=== PATIENT | male | born 1970 | race Caucasian/White ===

== ENCOUNTER → 2016-07-30 | Outpatient (CLI) | payer BC ==
[~2016-07-30] MED LIST: HYDR-5688 PO; MULT-506 PO
--- NOTE | 2016-07-30 13:47 | DIAGNOSTIC IMAGING REPORT ---
MRI THE RIGHT SHOULDER NO CONTRAST CLINICAL HISTORY: Right shoulder pain COMPARISON STUDY: Conventional radiographic study dated 02/27/2016 FINDINGS: Imaging was performed in sagittal, coronal, and axial planes. There are no areas of marrow replacement to indicate occult fracture or bone bruise. The bicipital tendon appears intact. There is no dislocation. There is extensive supraspinatus tendinopathy with a partial thickness tear. There is no tendinous retraction. There is irregularity anterior inferior inferior glenoid labrum IMPRESSION: 1. Extensive supraspinatus tendinopathy with a partial thickness tear. No evidence of tendinous retraction 2. Irregularity of the anterior inferior glenoid labrum, likely representing a tear Electronically signed by: Rickey Alexander M.D. 07/30/2016 1:46 PM Dictated Date/Time: 07/30/2016 1:42 PM
== END | disposition home or self-care (01) ==
LOC: C.MRI 13:04
PROVIDERS: ATTEND Physical Medicine & Rehabilitation Sports Medicine
DX: M25.511 Pain in right shoulder (principal)

== ENCOUNTER → 2016-09-19 | Day surgery (SDC) | payer BC ==
[2016-09-04 09:16] VITALS: Ht 177.8 cm; Wt 95.5 kg
[~2016-09-19] VITALS: Ht 177.8 cm; Wt 95.5 kg
[~2016-09-19] MED LIST changes: +BUPIVACAINE 0.5 % 5 MG/1 ML MPF 30ML VIAL ONE; +CEFAZOLIN 2000 MG/60 ML D5W IV SCH; +DEXAMETHASONE SOD INJ 4 MG/ML VIAL ONE; +FENTANYL CITRATE INJ 50 MCG/1 ML 2 ML VIAL IV PRN; +FENTANYL CITRATE INJ 50 MCG/1 ML 2 ML VIAL ONE; +GLYCOPYRROLATE INJ 0.2 MG/ML VIAL ONE; +LACTATED RINGER'S 1000ML 1,000 ML IV PRN; +LACTATED RINGER'S 1000ML 1,000 ML IV SCH; +LIDOCAINE HCL 2% 2 ML VIAL (20MG/ML) ONE; +LIDOCAINE/EPINEPHRINE 1% INJ 50 ML VIAL ONE; +MIDAZOLAM HCL 1 MG/ML 2ML VIAL ONE; +MoRPHine SULFATE 2 MG/ML CARP IV PRN; +MoRPHine SULFATE 4 MG/ML 1 ML CARP\\VIAL IV PRN; +NEOSTIGMINE METHYLSULFATE 5 MG/5 ML SYR ONE; +ONDANSETRON INJ 2 MG/ML 2 ML VIAL IV PRN; +ONDANSETRON INJ 2 MG/ML 2 ML VIAL ONE; +OXYCODONE/ACETAMINOPHEN 5-325 TAB PO PRN; +PROPOFOL IV EMULSION 10 MG/ML 20 ML VIAL IV ONE; +ROCURONIUM BROMIDE 10 MG/ML 5 ML VIAL ONE; +SODIUM CHLORIDE 0.9% 1000ML 1,000 ML IV SCH
--- NOTE | 2016-09-19 10:07 | History & Physical Bridge Note ---
H&P Re-Evaluation Bridge Note: I have examined the patient, reviewed the History & Physical and in the interval since the performance of the History & Physical I have noted the following changes of clinical significance: No changes noted
--- NOTE | 2016-09-19 14:12 | [facility] Post Operative Brief Note ---
Immediate Operative Summary Operative Date Sep 19, 2016. Pre-Operative Diagnosis Right Shoulder Acromioclavicular Arthritis Post-Operative Diagnosis Same, partial thickness cuff tear Procedure(s) Performed Right Shoulder Arthroscopy, Rotator Cuff Repair, Subacromial Decompression, Distal Clavicle Excision Surgeon Dr Franklin [employer] Worker Surgeon(s) None Estimated Blood Loss 50ML Findings normal biceps, partial thickness supraspinatus tear Specimens None Anesthesia LMA, block Complication(s) None Disposition Recovery Room / PACU
--- NOTE | 2016-09-19 14:26 | Discharge Instructions-SurgCtr ---
Discharge Instructions Date of Service Sep 19, 2016. Visit Reason for Visit: Right Shoulder Acromioclavicular Arthritis Discharge Discharge Diagnosis / Problem: Right shoulder acromioclavicular arthritis Discharge Goals Goal(s): Decrease discomfort, Improve function, Increase independence Activity Recommendations Activity Limitations: per Instructions/Follow-up section Anesthesia . Post Anesthesia Instructions: If you have had General Anesthesia or IV Sedation: * Do not drive today. * Resume driving when surgeon permits. * Do not make important decisions or sign legal documents today. * Call surgeon for: 1. Temperature elevations greater than 101 degrees F. 2. Uncontrollable pain. 3. Excessive bleeding. 4. Persistent nausea and vomiting. 5. Medication intolerance (nausea, vomiting or rash). * For nausea and vomiting use only clear liquids such as: tea, soda, bouillon until nausea subsides, then gradually increase diet as tolerated. * If you have any concerns or questions, call your surgeon's office. If physician is unavailable and it is an emergency, call 911 or go to the nearest emergency room. . Instructions / Follow-Up Instructions / Follow-Up The following are instructions to follow after "Shoulder Surgery" including, Acromioplasty, Rotator Cuff Repair and Instability Surgery ACTIVITY RECOMMENDATIONS: * Minimize activity after surgery. * No excessive walking, jogging, sports or laboring. * Return to activity is individualized depending on the patient and type of surgery. * Driving is not permitted until at least your first post operative visit. Please ask your doctor when it is safe to resume driving. * Expect increased discomfort with increased activity. Continue to ice the shoulder as needed. SCHOOL/WORK RECOMMENDATIONS: * You may return to sedentary work or school when you are feeling more comfortable. This is usually 3-7 days after surgery. MEDICATIONS: * You will have a prescription for pain medication and an anti-inflammatory medication after surgery. * Use the pain medication for severe pain and the anti-inflammatory for less severe pain. Once the pain medication has run out, try to use the anti-inflammatory medication. If this is not effective, contact the office for assistance. * The pain medication may cause nausea, constipation and drowsiness. You should see how they affect you before driving or similar activity. * The anti-inflammatory medication may cause stomach upset and bleeding. If this occurs let your doctor know immediately . * Take a stool softener like Colace or a laxative like Senokot to prevent constipation. DIET: * Resume previous diet. SPECIAL CARE: ICE: You have the option of an ice cooler, gel packs or ice bags. * If you have an ice cooler, refer to the instructions for that device. The ice cooler may be used continuously. * If you do not have an ice cooler, you will need to use ice bags or gel packs. Do not apply ice directly to the skin. Use a thin dressing or jasper shirt between the skin and ice bag. Apply ice for 20-30 minutes and repeat every 2-4 hours. This is especially important for the first 7-10 days after surgery. Once the pain improves, use ice as needed. ELEVATION: * You may be more comfortable sleeping in an upright position. Use the sling to elevate your arm. DRESSING: * Your dressing will be changed at your first therapy appointment approximately 4-5 days after surgery. Band-aids, tape strips or gauze may be applied. You may then change your dressing daily. * Reapply dressing followed by the EBIce cooling pad (if chosen) and then the sling. * Always wash your hands prior to touching the incision area. * Once the stitches are removed, you may leave the wound open to air or cover with gauze. * Expect some bloody drainage for the first few days after surgery. * Leave the tape strips, if present, in place for 5-7 days. * Band-aids and gauze may be changed daily. * There may be a gauze pad in your armpit area. This can be changed daily or replaced by a dry washcloth. SLING/BRACE: * You will need to use a sling or brace after surgery. The length of time the sling is used is dependent upon the type of surgery performed. * Arthroscopic Acromioplasty requires use of the sling for 2-4 weeks for comfort. * Labral procedures and Rotator Cuff Repairs require use of the sling for a longer period of time. Please check with your doctor prior to discontinuing the sling. BATHING: * You may shower or sponge-bathe immediately after surgery. The post operative shoulder dressing is mostly water-tight. You may shower right over this dressing, but be reasonably careful not to get the gauze or incision wet. * Once the dressing has been changed on the fourth or fifth day after surgery, you may shower and get the incision wet. * Wash with regular soap and water. * Do not bathe (submerge the incision), soak, swim or use a hot tub until the incision is completely healed over with normal skin and the doctor has given the OK to proceed. * There is no need to apply any ointments, powders or salves to your incision. * Do not apply alcohol or hydrogen peroxide directly to the incision. * Diluted peroxide (50:50 mixture with sterile saline) may be used to clean dried blood from around the incision area. THERAPY: * You will begin therapy four or five days after surgery. * Organized therapy with the therapist is important for the first 2-4 months after surgery depending on the type of procedure. During that time you will attend therapy 1-3 times per week. * You will also need to do daily exercises for range of motion and strength as instructed. * Patients who have a Capsular Shift Procedure will need to abide by temporary range of motion limitations. * Patients having Rotator Cuff Surgery are not allowed to actively lift their arms until 4-6 weeks after surgery. * Please check with your doctor regarding appropriate motion restrictions. FOLLOW UP VISIT: * If not already scheduled, please call the office at to schedule a follow-up appointment for 10 days after surgery and monthly thereafter. * You will start physical therapy on 09/23/16 at 10:30 a.m. * You have a follow up appointment with Dr. Franklin on 09/30/16 at 12:00 p.m. Please call [phone] with any questions/concerns or need to reschedule appointment. Diet Recommendations Home Diet: no limitations, resume previous diet Procedures Procedures Performed: Right Shoulder Arthroscopy, Rotator Cuff Repair, Subacromial Decompression, Distal Clavicle Excision Pending Studies Studies pending at discharge: no Medical Emergencies . Who to Call and When: Medical Emergencies: If at any time you feel your situation is an emergency, please call 911 immediately. . Non-Emergent Contact Non-Emergency issues call your: Surgeon Call Non-Emergent contact if: temperature is above 101.5, your pain is not controlled, your pain is concerning you, wound has increased drainage, you have any medication questions . . "Provider Documentation" section prepared by Charu Garnica.
--- NOTE | 2016-09-19 14:32 | [facility] Operative Report ---
Operative Report Operative Date Sep 19, 2016. Pre-Operative Diagnosis Right Shoulder Acromioclavicular Arthritis Post-Operative Diagnosis Same as pre-op, partial thickness rotator cuff tear Procedure(s) Performed Right shoulder arthroscopy, open distal clavicle excision, SAD, rotator cuff repair Surgeon Dr Franklin [employer] Technical Lead Surgeon(s) None Estimated Blood Loss 50ML Findings rotator cuff repair Specimens None Drains None Anesthesia LMA, block Complication(s) None Disposition Recovery Room / PACU Indications Patient is a 46 year old male who presented to the office with complaints of right shoulder pain, failed conservative treatment. X-rays/MRI obtained. Found to have AC joint arthritis and partial thickness rotator cuff tear. Surgical intervention discussed, risks/complications discussed, informed consent obtained. Description of Procedure Patient was taken to the operating room, given IV Ancef for surgical prophylaxis. Time out performed, prepped and draped in routine sterile fashion. I was present the entire case, please see Dr. Franklin's operative report for further detail. Patient was awakened and taken to the recovery room in stable condition. I attest to the content of the Intraoperative Record and any orders documented therein. Any exceptions are noted below.
--- NOTE | 2016-09-19 14:59 | Anesthesia Progress Nt - [facility] ---
Anesthesia Post Op Note Date & Time Sep 19, 2016 at 14:59 Vital Signs Pain Intensity: 3 Vital Signs Past 12 Hours Date Time Temp Pulse Resp B/P Pulse Ox O2 Delivery O2 Flow Rate FiO2 09/19/16 14:57 57 17 93 09/19/16 14:57 56 17 09/19/16 14:55 130/68 09/19/16 14:52 59 18 93 09/19/16 14:52 59 18 09/19/16 14:51 58 16 93 09/19/16 14:51 58 16 09/19/16 14:50 123/68 09/19/16 14:50 36.4 59 17 123/68 94 Room Air 09/19/16 14:46 55 17 09/19/16 14:46 55 17 95 09/19/16 14:45 124/68 09/19/16 14:41 58 19 94 09/19/16 14:41 59 19 09/19/16 14:40 128/73 09/19/16 14:36 57 18 09/19/16 14:36 56 18 98 09/19/16 14:35 125/68 09/19/16 14:31 59 17 98 09/19/16 14:31 59 17 09/19/16 14:30 129/68 09/19/16 14:26 59 17 09/19/16 14:26 60 17 98 09/19/16 14:25 122/68 09/19/16 14:21 61 18 98 09/19/16 14:21 61 18 09/19/16 14:20 36.5 65 20 129/71 97 Room Air 09/19/16 14:20 129/71 09/19/16 10:45 68 13 09/19/16 10:45 69 13 137/85 09/19/16 10:45 68 13 09/19/16 10:45 69 13 137/85 09/19/16 10:44 140/85 09/19/16 10:44 140/85 09/19/16 10:40 53 24 09/19/16 10:40 53 24 100 09/19/16 10:40 53 24 09/19/16 10:40 53 24 100 09/19/16 10:35 58 20 09/19/16 10:35 60 20 133/89 97 09/19/16 10:35 60 20 133/89 97 09/19/16 10:35 58 20 09/19/16 10:34 144/87 09/19/16 10:34 144/87 09/19/16 10:03 36.9 62 18 136/94 96 Room Air Notes Mental Status: alert / awake / arousable, participated in evaluation Pt Amnestic to Procedure: Yes Nausea / Vomiting: adequately controlled Pain: adequately controlled Airway Patency, RR, SpO2: stable & adequate BP & HR: stable & adequate Hydration State: stable & adequate Anesthetic Complications: no major complications apparent Pt doing well.
[2016-09-19 15:13] VITALS: TEMP 36.4
--- NOTE | 2016-09-19 15:22 | OPERATIVE REPORT ---
DATE OF OPERATION: 09/19/2016 PREOPERATIVE DIAGNOSIS: Right shoulder acromioclavicular joint arthralgia with impingement syndrome. POSTOPERATIVE DIAGNOSES: Same plus partial thickness tear of supraspinatus tendon. PROCEDURES: Right shoulder arthroscopy, arthroscopic subacromial decompression, mini open distal clavicle excision and arthroscopic repair of a partial thickness tear involving the supraspinatus tendon. SURGEON: Ronald Franklin MD ASSISTANTS: Charu Garnica PA-C and Niall García MD fellow. ANESTHESIA: Laryngeal mask with interscalene block. INDICATIONS OF PROCEDURE: The patient is a 46-year-old male [employer] with right shoulder pain. His exam and injections have shown pain consistently in the AC joint. He did have some mild impingement. The MRI of the shoulder demonstrated possibly significant rotator cuff tendinopathy. Treatment options, risks and benefits were discussed and plan is to proceed with a shoulder arthroscopy, decompression, distal clavicle excision and possible rotator cuff repair if needed. PROCEDURE IN DETAIL: Informed consent was obtained. The patient identified as Filipe Mckeon. He identified the operative site as the right shoulder. I marked with my initials. A preop surgical time out performed. A preop dose of IV antibiotics was given. He was positioned beach chair with the neck held in neutral alignment. The torso was secured to the table. A general anesthetic and interscalene block were given. Foot pumps were applied. DVT prophylaxis after surgery with early mobility. The mastoid processes were padded. Kidney rests were utilized. The heel and knees were padded. The right upper extremity was prepped and draped in the usual sterile fashion. A 1% lidocaine with epinephrine was injected into the fat pad, portal sites and subacromial space preoperatively. After arthroscopic rotator cuff repair, the undersurface of the acromion was denuded of soft tissue using cold cut and shaver. The anterior and lateral margins were defined and a modified cutting block acromioplasty was performed removing about 2-4 mm of anterior bone smoothing this from front to back and medial to lateral. The shaver was run through the shoulder to sweet pickled fruit maker loose debris. After the subacromial decompression, a 4-cm longitudinal incision was made parallel to the AC joint and just at the same level. Electrocautery was utilized down to the subcutaneous tissues. The skin and subcutaneous tissues were elevated up and a medial flap. The deltotrapezial fascia was divided in line with the shaft clavicle. The distal clavicle was exposed and the distal 10 mm was resected. There was no impingement present and the remaining clavicle was beveled with a rongeur. The wound was irrigated and closed with 0 Vicryl for the deltotrapezial fascia. The skin was closed with 2-0 Vicryl and 4-0 Monocryl. A posterior soft spot viewing portal was established followed by an anterior mid glenoid portal using the outside-in technique. Diagnostic arthroscopy was performed. There was some fraying of the superior labrum without notable detachment. This was debrided. There was some mild laxity and perhaps triggering of the anterior and anterior inferior labrum, but not complete detachment. Mild synovitis in the rotator interval was noted and debrided. Subscapularis was normal. The posterior cuff was normal. The articular surfaces of the posterior capsule and labrum as well as the axillary pouch were normal. Articular surface of the humeral head was also normal. The scope was placed anterior to visualize the posterior structures. Significant partial thickness tear of the supraspinatus over a distance of about 18-20 mm was noted. Debridement revealed that this exposed about 6-8 mm of the footprint. The footprint was prepared with a curette and a shaver to debride soft tissue and expose the bone. Because of the thickness and size of the tear being substantially partial thickness, repair was elected. The scope was placed in the subacromial space and accessory lateral portal was created. A thorough subacromial bursectomy was performed. A spinal needle was used to localize the position for the anchors. The anchors were inserted about a centimeter back from the anterior margin and just at the posterior margin of the tear. They were placed at 30-40 degree angle from the longitudinal shaft of the humerus just lateral to the articular surface. A punch was used followed by a tap and a percutaneous insertion of 4.5 [employer] Ar[employer]rex corkscrew anchors. The sutures were managed and passed percutaneously using a spinal needle and suture retrieval in a horizontal mattress fashion. The sutures were passed in such a fashion that they would incorporate a very minor partial thickness delamination tear and bring it back down to the rotator cuff footprint. Sutures were passed in a horizontal mattress fashion. Sutures were then retrieved in the subacromial space, managed and tied with modified [place] knot backed up with reverse half inches on alternating post or using a SCOI knot where appropriate. Three of the knots were tied with a Cody and 1 with the SCOI. I then looked intraarticularly and found that there was good stability and apposition of the rotator cuff. The decompression and distal clavicle excision were then performed. The portals were closed with 4-0 nylon, soft sterile dressing was applied, ABD in the armpit UltraSling. He was awakened from anesthesia without difficulty and taken to recovery room in stable condition. There were no specimens or complications. Counts were correct at the end of case. Blood loss was 50 mL. At the conclusion of the operation, I spoke to patient's and informed her of my findings. Postoperative instructions were given. He will be rehabilitated according to the arthroscopic rotator cuff repair protocol. The distal clavicle appeared to be elevated compared to the acromion and there appeared to be some degenerative changes present upon the distal clavicle. There was no tearing of the bursal surface of the rotator cuff. There was some more thinning noted posteriorly, but I still think that there was at least 5 mm of intact cuff present. I attest to the content of the Intraoperative Record and any orders documented therein. Any exceptio ns are noted below.
[2016-09-19 15:40] VITALS: BP 103/64; PULSE 48; O2SAT 95
== END | disposition home or self-care (01) ==
LOC: X.SURG 09:53
PROVIDERS: ATTEND Physical Medicine & Rehabilitation Sports Medicine
DX: M19.011 Primary osteoarthritis, right shoulder (principal); M75.41 Impingement syndrome of right shoulder; M75.110 Incomplete rotator cuff tear or rupture of unspecified shoulder, not specified as traumatic

== ENCOUNTER → 2016-09-30 | Outpatient (CLI) | payer BC ==
[~2016-09-30] MED LIST changes: -BUPIVACAINE 0.5 % 5 MG/1 ML MPF 30ML VIAL ONE; -CEFAZOLIN 2000 MG/60 ML D5W IV SCH; -DEXAMETHASONE SOD INJ 4 MG/ML VIAL ONE; -FENTANYL CITRATE INJ 50 MCG/1 ML 2 ML VIAL IV PRN; -FENTANYL CITRATE INJ 50 MCG/1 ML 2 ML VIAL ONE; -GLYCOPYRROLATE INJ 0.2 MG/ML VIAL ONE; -LACTATED RINGER'S 1000ML 1,000 ML IV PRN; -LACTATED RINGER'S 1000ML 1,000 ML IV SCH; -LIDOCAINE HCL 2% 2 ML VIAL (20MG/ML) ONE; -LIDOCAINE/EPINEPHRINE 1% INJ 50 ML VIAL ONE; -MIDAZOLAM HCL 1 MG/ML 2ML VIAL ONE; -MoRPHine SULFATE 2 MG/ML CARP IV PRN; -MoRPHine SULFATE 4 MG/ML 1 ML CARP\\VIAL IV PRN; -NEOSTIGMINE METHYLSULFATE 5 MG/5 ML SYR ONE; -ONDANSETRON INJ 2 MG/ML 2 ML VIAL IV PRN; -ONDANSETRON INJ 2 MG/ML 2 ML VIAL ONE; -OXYCODONE/ACETAMINOPHEN 5-325 TAB PO PRN; -PROPOFOL IV EMULSION 10 MG/ML 20 ML VIAL IV ONE; -ROCURONIUM BROMIDE 10 MG/ML 5 ML VIAL ONE; -SODIUM CHLORIDE 0.9% 1000ML 1,000 ML IV SCH
== END | disposition home or self-care (01) ==
LOC: C.RDSM 11:45
PROVIDERS: ATTEND Physical Medicine & Rehabilitation Sports Medicine
DX: Z98.890 Other specified postprocedural states (principal)